=== PATIENT | male | born 1975 | race Caucasian/White ===

== ENCOUNTER 2017-01-29 08:42 | Inpatient (IN) | payer OTHER ==
[~2017-01-29] VITALS: Ht 185.4 cm; Wt 71.0 kg
[~2017-01-29 08:42] MED LIST: ALBU0.08 NEB; AZIT500T2 PO; IPRA0.02 NEB; NEBULIZER/ADULT1 KIT; NICO21DI2 T-DERMAL; PRED20 PO
[2017-01-29 08:45] VITALS: BP 140/80; PULSE 89; RESP 20; TEMP 97.8; O2SAT 92
[2017-01-29] MEDS ORDERED: SODIUM CHLORIDE 0.9% FLUSH 10 ML FLUSH IVF PRN (09:45)
[2017-01-29] MEDS ORDERED: methylPREDNISolone SOD SUCC 125 MG/2 ML VIAL IVP ONE (09:45)
--- NOTE | 2017-01-29 09:46 | PD ---
HPI Chief Complaint: Respiratory Symptoms Time Seen by Provider: 09:37 Travel History International Travel<30 days: No Contact w/Intl Traveler<30days: No Traveled to known affect area: No History of Present Illness HPI The patient is a 41-year-old male who presents emergency department for shortness of breath. The patient states he has a history of COPD, recently diagnosed, with shortness of breath since last Sunday. The patient states he has had increasing shortness of breath since Sunday with mild chest tightness, mostly dry nonproductive cough, however, occasionally produces green sputum. The patient has been using duo nebs at home 3 times a day without any alleviation of his symptoms. Patient states he is unable to lie supine or sleep secondary to the shortness of breath. Patient states he recently quit smoking, 3 weeks ago. The patient denies any history of CAD, CHF, or PE. The patient denies any company fever, chills, or sweats. The patient's primary physician is Dr. Arango. [facility] Past Medical History ADHD: Yes Blood Disorders: No Anxiety: Yes Cancer: No Cardiovascular Problems: No Congestive Heart Failure: No COPD: Yes Coronary Artery Disease: No Diabetes: No Diminished Hearing: No Endocrine: No Genitourinary: Yes (uti in past) Immune Disorder: No Musculoskeletal: No Neurologic: No Psychiatric: Yes Reproductive: No Respiratory: Yes (COPD) Integumentary: Yes (HX OF MRSA) Past Surgical History Appendectomy: Yes Social History Alcohol Use: Yes (OCCASIONAL BEER) Tobacco Use: Yes (1/2 PPD) Substance Use: No Allergies-Medications (Allergen,Severity, Reaction): Coded Allergies: No Known Allergies (Verified , 01/29/17) Reported Meds & Prescriptions Reported Meds & Active Scripts Active Nicotine Patch (Nicotine) 21 Mg/24 Hr Patch 21 Mg T-DERMAL DAILY Azithromycin 500 Mg Tab 500 Mg PO DAILY Prednisone 20 Mg Tab 20 Mg PO DIRECTED 40 MG twice a day x 3 days, then 20 MG daily x 3 days, then 10 MG daily x 3 days Ipratropium Neb (Ipratropium [place]) 0.5 Mg/2.5 Ml Amp 0.5 Mg NEB Q4HR NEB Mix with albuterol nebulizer. Use every 4 hours while awake for the next 3 days. Then use as needed Albuterol Neb (Albuterol Sulfate) 2.5 Mg/3 Ml Neb 2.5 Mg NEB Q4HR NEB Every 4 hours while awake for the next 3 days. Then use Every 4 hours as needed for shortness of breath or wheezing. Nebulizer/Adult Mask (N/A) 1 Kit Kit 1 Kit .ROUTE DIRECTED Review of Systems Except as stated in HPI: all other systems reviewed are Neg General / Constitutional: No: Fever HENT: Positive: Congestion Cardiovascular: Positive: Chest Pain or Discomfort Respiratory: Positive: Cough, Shortness of Breath, Wheezing Gastrointestinal: No: Nausea, Vomiting, Abdominal Pain Musculoskeletal: No: Weakness, Edema Neurologic: No: Dizziness Physical Exam Narrative GENERAL: Awake, alert, 41-year-old male who appears his stated age and is in mild respiratory distress. SKIN: Focused skin assessment warm/dry. HEAD: Atraumatic. Normocephalic. EYES: Pupils equal and round. No scleral icterus. No injection or drainage. ENT: No nasal bleeding or discharge. Mucous membranes pink and moist. NECK: Trachea midline. No JVD. CARDIOVASCULAR: Regular rate and rhythm. No murmur appreciated. Heart rate in the 90s. RESPIRATORY: Supraclavicular retractions. Diminished breath sounds throughout, tight lung frero with late expiratory wheeze. GASTROINTESTINAL: Abdomen soft, non-tender, nondistended. No rebound tenderness. MUSCULOSKELETAL: No obvious deformities. No clubbing. No cyanosis. No edema. NEUROLOGICAL: Awake and alert. No obvious cranial nerve deficits. Motor grossly within normal limits. Normal speech. PSYCHIATRIC: Appropriate mood and affect; insight and judgment normal. Data Data Last Documented VS Vital Signs Date Time Temp Pulse Resp B/P Pulse Ox O2 Delivery O2 Flow Rate FiO2 01/29/17 10:21 96 21 01/29/17 09:44 Nasal Cannula 2 01/29/17 09:44 01/29/17 08:45 97.8 89 20 Orders Complete Blood Count With Diff (01/29/17 09:42) Comprehensive Metabolic Panel (01/29/17 09:42) B-Type Natriuretic Peptide (01/29/17 09:42) Magnesium (Mg) (01/29/17 09:42) Ckmb (Isoenzyme) Profile (01/29/17 09:42) Troponin I (01/29/17 09:42) Iv Access Insert/Monitor (01/29/17 09:42) Electrocardiogram (01/29/17 09:42) Ecg Monitoring (01/29/17 09:42) Oximetry (01/29/17 09:42) Oxygen Administration (01/29/17 09:42) Chest, Single Ap (01/29/17 09:42) Sodium Chloride 0.9% Flush (Ns Flush) (01/29/17 09:45) Methylprednisolone So Succ Inj (Solumedr (01/29/17 09:45) Albuterol-Ipratropium Neb (Duoneb Neb) (01/29/17 09:45) Admit To Inpatient (01/29/17 ) Code Status (01/29/17 11:03) Vital Signs (Adult) Q4H (01/29/17 11:03) Activity Oob With Assistance (01/29/17 11:03) Diet Regular Basic (01/29/17 Lunch) Sodium Chloride 0.9% Flush (Ns Flush) (01/29/17 11:15) Sodium Chloride 0.9% Flush (Ns Flush) (01/29/17 21:00) Acetaminophen (Tylenol) (01/29/17 11:15) Ondansetron Inj (Zofran Inj) (01/29/17 11:15) Magnesium Hydroxide Liq (Milk Of Magnesi (01/29/17 11:15) Temazepam (Restoril) (01/29/17 11:15) Basic Metabolic Panel (Bmp) (01/30/17 06:00) Comprehensive Metabolic Panel (01/30/17 06:00) Chest, Pa & Lat (01/30/17 08:00) Resp Oxygen Kailash C Titrat 1-4 L (01/29/17 ) Pt Request For Service (01/29/17 11:03) Scd Bilateral/Knee High MARGA.BID (01/29/17 11:03) Naloxone Inj (Narcan Inj) (01/29/17 11:15) Inpatient Certification (01/29/17 ) Methylprednisolone So Succ Inj (Solumedr (01/29/17 16:00) Albuterol-Ipratropium Neb (Duoneb Neb) (01/29/17 14:00) Albuterol-Ipratropium Neb (Duoneb Neb) (01/29/17 11:15) 1/2 Ns + Kcl 20 Meq Inj (1/2 Ns + Kcl 20 (01/29/17 12:00) Nicotine 21 Mg Patch.24 Hr (Habitrol 21 (01/29/17 11:30) Remove Old Patch (01/29/17 11:30) Admit Order (Ed Use Only) (01/29/17 11:13) Labs Laboratory Tests Test 01/29/17 09:45 White Blood Count 7.1 TH/MM3 Red Blood Count 5.71 MIL/MM3 Hemoglobin 18.2 GM/DL Hematocrit 54.3 % Mean Corpuscular Volume 95.0 FL Mean Corpuscular Hemoglobin 31.8 PG Mean Corpuscular Hemoglobin 33.5 % Concent Red Cell Distribution Width 13.1 % Platelet Count 235 TH/MM3 Mean Platelet Volume 7.8 FL Neutrophils (%) (Auto) 73.4 % Lymphocytes (%) (Auto) 15.6 % Monocytes (%) (Auto) 9.0 % Eosinophils (%) (Auto) 1.2 % Basophils (%) (Auto) 0.8 % Neutrophils # (Auto) 5.2 TH/MM3 Lymphocytes # (Auto) 1.1 TH/MM3 Monocytes # (Auto) 0.6 TH/MM3 Eosinophils # (Auto) 0.1 TH/MM3 Basophils # (Auto) 0.1 TH/MM3 CBC Comment DIFF FINAL Differential Comment Sodium Level 136 MEQ/L Potassium Level 4.0 MEQ/L Chloride Level 100 MEQ/L Carbon Dioxide Level 27.5 MEQ/L Anion Gap 9 MEQ/L Blood Urea Nitrogen 7 MG/DL Creatinine 0.84 MG/DL Estimat Glomerular Filtration 100 ML/MIN Rate Random Glucose 92 MG/DL Calcium Level 9.4 MG/DL Magnesium Level 2.3 MG/DL Total Bilirubin 0.5 MG/DL Aspartate Amino Transf 23 U/L (AST/SGOT) Alanine Aminotransferase 31 U/L (ALT/SGPT) Alkaline Phosphatase 105 U/L Total Creatine Kinase 73 U/L Troponin I LESS THAN 0.02 NG/ML B-Type Natriuretic Peptide 14 PG/ML Total Protein 7.6 GM/DL Albumin 3.6 GM/DL MDM Medical Decision Making Medical Screen Exam Complete: Yes Emergency Medical Condition: Yes Medical Record Reviewed: Yes Interpretation(s) Laboratory Tests Test 01/29/17 09:45 White Blood Count 7.1 TH/MM3 Red Blood Count 5.71 MIL/MM3 Hemoglobin 18.2 GM/DL Hematocrit 54.3 % Mean Corpuscular Volume 95.0 FL Mean Corpuscular Hemoglobin 31.8 PG Mean Corpuscular Hemoglobin 33.5 % Concent Red Cell Distribution Width 13.1 % Platelet Count 235 TH/MM3 Mean Platelet Volume 7.8 FL Neutrophils (%) (Auto) 73.4 % Lymphocytes (%) (Auto) 15.6 % Monocytes (%) (Auto) 9.0 % Eosinophils (%) (Auto) 1.2 % Basophils (%) (Auto) 0.8 % Neutrophils # (Auto) 5.2 TH/MM3 Lymphocytes # (Auto) 1.1 TH/MM3 Monocytes # (Auto) 0.6 TH/MM3 Eosinophils # (Auto) 0.1 TH/MM3 Basophils # (Auto) 0.1 TH/MM3 CBC Comment DIFF FINAL Differential Comment Sodium Level 136 MEQ/L Potassium Level 4.0 MEQ/L Chloride Level 100 MEQ/L Carbon Dioxide Level 27.5 MEQ/L Anion Gap 9 MEQ/L Blood Urea Nitrogen 7 MG/DL Creatinine 0.84 MG/DL Estimat Glomerular Filtration 100 ML/MIN Rate Random Glucose 92 MG/DL Calcium Level 9.4 MG/DL Magnesium Level 2.3 MG/DL Total Bilirubin 0.5 MG/DL Aspartate Amino Transf 23 U/L (AST/SGOT) Alanine Aminotransferase 31 U/L (ALT/SGPT) Alkaline Phosphatase 105 U/L Total Creatine Kinase 73 U/L Troponin I LESS THAN 0.02 NG/ML B-Type Natriuretic Peptide 14 PG/ML Total Protein 7.6 GM/DL Albumin 3.6 GM/DL Last Impressions Chest X-Ray 01/29/17 0942 Signed Impressions: Service Date/Time: Sunday, January 29, 2017 10:00 - CONCLUSION: No acute disease. Adolph Benítez MD Differential Diagnosis Differential diagnosis includes COPD exacerbation, bronchitis, pneumonia, congestive heart failure, pleural effusion, pulmonary embolism, ACS. Narrative Course IV was established, labs are drawn and sent, and the patient was placed on cardiac telemetry monitoring and continuous pulse oximetry monitoring. EKG was ordered and interpreted. Chest x-ray was obtained. The patient was administered Solu-Medrol 125 mg intravenously and duo nebs 3. Chest x-rays unremarkable. Laboratory evaluation is unremarkable. The patient was reevaluated at 11 AM, he still has some supraclavicular retractions, mild improvement and bilateral breath sounds, but still tight with late expiratory wheeze. The patient was still symptomatic with visible supraclavicular retractions. He has been using DuoNeb's outpatient without any alleviation of his symptoms. Therefore, patient will be admitted for COPD exacerbation and failure of outpatient treatment. I discussed the patient with the on-call [facility] physician, Dr. Sanchez, who agrees with admission. Physician Communication Physician Communication I discussed the patient Dr. Sanchez who agrees with admission. Diagnosis Primary Impression: COPD with acute exacerbation Admitting Information Admitting Physician Requests: Admit Condition: Stable Moy Brizuela MD Jan 29, 2017 09:46 Moy Brizuela MD Jan 29, 2017 09:46
[2017-01-29 10:11] LABS: AUTOMATED NEUTROPHIL # 5.2 TH/MM3 (1.8-7.7); BASOPHIL # 0.1 TH/MM3 (0-0.2); BASOPHIL % 0.8 % (0.0-2.0); EOSINOPHIL # 0.1 TH/MM3 (0-0.4); EOSINOPHIL % 1.2 % (0.0-4.0); HEMATOCRIT 54.3 % (39.0-51.0); HEMO FLAGS DIFF FINAL; LYMPH % 15.6 % (9.0-44.0); LYMPHOCYTE # 1.1 TH/MM3 (1.0-4.8); MEAN CORPUSCULAR HEMOGLOBIN 31.8 PG (27.0-34.0); MEAN CORPUSCULAR HGB CONC 33.5 % (32.0-36.0); NEUT % 73.4 % (16.0-70.0); PLATELET COUNT 235 TH/MM3 (150-450); RED BLOOD COUNT 5.71 MIL/MM3 (4.50-5.90); RED CELL DISTRIBUTION WIDTH 13.1 % (11.6-17.2); WHITE BLOOD COUNT 7.1 TH/MM3 (4.0-11.0)
[2017-01-29] MEDS: RESP: ALBUTEROL 2.5 MG/IPRATROPIUM 0.5 MG NEB (SCH) INH (10:19)
[2017-01-29 10:21] VITALS: O2SAT 96
[2017-01-29 10:30] LABS: ALT (GPT) 31 U/L (12-78); ANION GAP 9 MEQ/L (5-15); AST (GOT) 23 U/L (15-37); BICARBONATE 27.5 MEQ/L (21.0-32.0); BLOOD UREA NITROGEN 7 MG/DL (7-18); CHLORIDE 100 MEQ/L (98-107); GLOMERULAR FILTRATION RATE 100 ML/MIN (>89); MAGNESIUM 2.3 MG/DL (1.5-2.5); SODIUM (NA) 136 MEQ/L (136-145)
[2017-01-29 10:33] LABS: ALKALINE PHOSPHATASE 105 U/L (45-117); TOTAL BILIRUBIN ADULT 0.5 MG/DL (0.2-1.0)
[2017-01-29 10:35] LABS: CREATINE KINASE 73 U/L (39-308)
--- NOTE | 2017-01-29 10:35 | RADRPT ---
EXAM DATE/TIME: 01/29/2017 10:00 [facility] COMPARISON: CHEST SINGLE AP, September 24, 2016, 20:28. INDICATIONS : Short of breath, chest pain MEDICAL HISTORY : Chronic obstructive pulmonary disease. SURGICAL HISTORY : None. ENCOUNTER: Initial ACUITY: 3 days PAIN SCORE: 4/10 LOCATION: Bilateral chest FINDINGS: A single view of the chest demonstrates the lungs to be symmetrically aerated without evidence of mas s, infiltrate or effusion. The cardiomediastinal contours are unremarkable. Osseous structures are intact. CONCLUSION: No acute disease. Adolph Benítez MD on January 29, 2017 at 10:33 Board Certified Radiologist. This report was verified electronically.
[2017-01-29] MEDS ORDERED: ACETAMINOPHEN 325 MG TAB PO PRN (11:15)
[2017-01-29] MEDS ORDERED: ONDANSETRON HCL 4 MG/2 ML VIAL IVP PRN (11:15)
[2017-01-29] MEDS ORDERED: MAGNESIUM HYDROXIDE SUSP 30 ML CUP PO PRN (11:15)
[2017-01-29] MEDS ORDERED: TEMAZEPAM 15 MG CAP PO PRN (11:15)
[2017-01-29] MEDS ORDERED: NALOXONE HCL 0.4 MG/ML AMP IV PRN (11:15)
[2017-01-29] MEDS ORDERED: SODIUM CHLORIDE 0.9% FLUSH 10 ML FLUSH IV FLUSH PRN (11:15)
[2017-01-29] MEDS ORDERED: RESP: ALBUTEROL 2.5 MG/IPRATROPIUM 0.5 MG NEB (PRN) NEB (11:15)
[2017-01-29] MEDS: RESP: ALBUTEROL 2.5 MG/IPRATROPIUM 0.5 MG NEB (SCH) NEB ×3 (11:28→20:25)
[2017-01-29 11:29] VITALS: O2SAT 87
[2017-01-29] MEDS ORDERED: REMOVE OLD NICOTINE PATCH T-DERMAL SCH (11:30)
[2017-01-29] MEDS: NICOTINE 21 MG/24 HR PATCH T-DERMAL SCH (11:30)
[2017-01-29] MEDS ORDERED: NON-FORMULARY DRUG (Umeclidinium Bromide Inh (Incruse Ellipta Inh) 62.5 MCG) INH SCH (15:00)
[2017-01-29] MEDS ORDERED: VENTAER INH (15:01)
[2017-01-29] MEDS ORDERED: UMEC1INH INH (15:01)
--- NOTE | 2017-01-29 15:09 | HHI.HP ---
HPI Service [facility] Hospitalists Primary Care Physician Michael Arango MD Admission Diagnosis COPD exacerbation, dyspnea, failed outpatient therapy Chief Complaint: SOB Travel History International Travel<30 Days: No Contact w/Intl Traveler <30 Da: No Traveled to Known Affected Are: No History of Present Illness Mr. Watson is a pleasant 41 y/o WM with severe COPD, hx of tobacco abuse and GERD who presented to the ED at [facility] on 01/29/17 with complaints of shortness of breath. The patient feels that he has had some worsening shortness of breath since last Sunday with some associated mild chest tightness. He has had a mostly nonproductive cough, however, occasionally produces green sputum. The patient has been using Duonebs at home 3 times a day without any improvement in his symptoms. Patient states he is unable to lie supine or sleep secondary to the shortness of breath. Patient states he recently quit smoking, 3 weeks ago. The patient denies any history of CAD, CHF, or PE. The patient denies any fever, chills, or sweats. In the ED the pt was given Solu-Medrol and several Duoneb treatments with some improvement in his symptoms. Review of Systems Constitutional: DENIES: Fever, Chills Respiratory: COMPLAINS OF: Cough, Sputum production, Shortness of breath Cardiovascular: DENIES: Chest pain, Palpitations, Lower Extremity Edema Gastrointestinal: DENIES: Abdominal pain, Nausea, Vomiting Genitourinary: DENIES: Dysuria Musculoskeletal: DENIES: Back pain, Neck pain Integumentary: DENIES: Rash Neurologic: DENIES: Headache Psychiatric: DENIES: Confusion Past Family Social History Past Medical History COPD, PFTs from 11/2016 noted FEV1 34% predicted Tobacco abuse GERD Past Surgical History Appendectomy Reported Medications Incruse Ellipta 62.5mcg one inhalation per day Duonebs Q4H PRN Ventolin HFA 108mcg, 2 puffs Q4-6H PRN Allergies: Coded Allergies: No Known Allergies (Verified , 01/29/17) Family History Noncontributory Social History (+)Tobacco use, 1-1.5 ppd x 27 years, quit about 3 weeks ago (+)Occasional alcohol use Denies any illicit drug use Physical Exam Vital Signs Vital Signs Date Time Temp Pulse Resp B/P Pulse Ox O2 Delivery O2 Flow Rate FiO2 01/29/17 11:29 87 21 4/24/17 10:21 96 21 01/29/17 09:44 93 Nasal Cannula 2 01/29/17 09:44 Nasal Cannula 2 01/29/17 09:41 93 01/29/17 08:45 97.8 89 20 140/80 92 Physical Exam GENERAL: This is a well-nourished, well-developed patient, in no apparent distress. HEENT: Atraumatic. Normocephalic. No temporal or scalp tenderness. No scleral icterus. Airway patent. NECK: Trachea midline, supple, nontender. CARDIO: Regular. RESP: Coarse breath sounds bilaterally. ABD: +BS, soft, non-tender, nondistended. EXT: Extremities without clubbing, cyanosis, or edema. NEURO: Awake and alert. Motor and sensory grossly within normal limits. Normal speech. Laboratory Laboratory Tests Test 01/29/17 09:45 White Blood Count 7.1 Red Blood Count 5.71 Hemoglobin 18.2 Hematocrit 54.3 Mean Corpuscular Volume 95.0 Mean Corpuscular Hemoglobin 31.8 Mean Corpuscular Hemoglobin 33.5 Concent Red Cell Distribution Width 13.1 Platelet Count 235 Mean Platelet Volume 7.8 Neutrophils (%) (Auto) 73.4 Lymphocytes (%) (Auto) 15.6 Monocytes (%) (Auto) 9.0 Eosinophils (%) (Auto) 1.2 Basophils (%) (Auto) 0.8 Neutrophils # (Auto) 5.2 Lymphocytes # (Auto) 1.1 Monocytes # (Auto) 0.6 Eosinophils # (Auto) 0.1 Basophils # (Auto) 0.1 CBC Comment DIFF FINAL Differential Comment Sodium Level 136 Potassium Level 4.0 Chloride Level 100 Carbon Dioxide Level 27.5 Anion Gap 9 Blood Urea Nitrogen 7 Creatinine 0.84 Estimat Glomerular Filtration 100 Rate Random Glucose 92 Calcium Level 9.4 Magnesium Level 2.3 Total Bilirubin 0.5 Aspartate Amino Transf 23 (AST/SGOT) Alanine Aminotransferase 31 (ALT/SGPT) Alkaline Phosphatase 105 Total Creatine Kinase 73 Troponin I LESS THAN 0.02 B-Type Natriuretic Peptide 14 Total Protein 7.6 Albumin 3.6 Result Diagram: 01/29/1745 01/29/17944 Imaging Last Impressions Chest X-Ray 01/29/17941 Signed Impressions: Service Date/Time: Sunday, January 29, 2017 10:00 - CONCLUSION: No acute disease. Adolph Benítez MD Septic Shock Reassessment Heart: Regular rate and rhythm Lungs: Course Skin: Warm Peripheral Pulses: Bounding Right Radial Bounding Left Radial Bounding Right Popliteal Bounding Left Popliteal Bounding Right Dorsalis Pedis Bounding Left Dorsalis Pedis Bounding Right Posterior Tibial Bounding Left Posterior Tibial Assessment and Plan Problem List: (1) COPD with acute exacerbation Status: Acute Plan: - Pt admitted with a 4 days of worsening SOB and cough, occasionally productive of green sputum. - He received Solu-Medrol 125 mg intravenously and duo nebs 3 in the ED - Pt had been using Duonebs TID as an outpt but this was not helping. - PFTs in 11/2016 with FEV1 34% of predicted. - Pt is on Incruse Ellipta once daily at home. - Pt will be continued on Solu-Medrol 60mg Q6H - Cont. Duonebs Q4H - Nicotine patch - Mucinex BID - Monitor labs - DVT prophylaxis (2) Tobacco abuse Status: Chronic Plan: - Tobacco cessation, pt reports that he quit 3 weeks ago - Nicotine patch Assessment and Plan Patient examined. Assessment and plan formulated with Rachel Lara PA-C. I agree with the above. Physician Certification 2 Midnight Certification Type: Admission for Inpatient Services Order for Inpatient Services The services are ordered in accordance with Medicare regulations or non- Medicare payer requirements, as applicable. In the case of services not specified as inpatient-only, they are appropriately provided as inpatient services in accordance with the 2-midnight benchmark. Estimated LOS (days): 2 2 days is the estimated time the patient will need to remain in the hospital, assuming treatment plan goals are met and no additional complications. Post-Hospital Plan: Home Rachel Lara Jan 29, 2017 15:09 Jermaine Sanchez DO February 10, 2017 10:25
[2017-01-29] MEDS: methylPREDNISolone SOD SUCC 125 MG/2 ML VIAL IV PUSH SCH ×2 (15:16→20:08)
[2017-01-29 16:00] VITALS: BP 129/73; PULSE 92; RESP 18; TEMP 97.4; O2SAT 92
[2017-01-29] MEDS: 1/2 NS + KCL 20 MEQ INJ 1,000 ML IV SCH ×2 (16:00→23:55)
[2017-01-29] MEDS: guaiFENesin E.R. 600 MG TAB PO SCH ×2 (16:32→20:08)
[2017-01-29] MEDS: LEVOFLOXACIN 500 MG TAB PO SCH (18:02)
[2017-01-29 20:00] VITALS: BP 144/75; PULSE 92; RESP 20; TEMP 97.9; O2SAT 93
[2017-01-29] MEDS: SODIUM CHLORIDE 0.9% FLUSH 10 ML FLUSH IV FLUSH SCH (20:09)
[2017-01-29 20:26] VITALS: O2SAT 94
[2017-01-30] VITALS: BP 138/84; PULSE 99; RESP 20; TEMP 97.7; O2SAT 90
[2017-01-30] MEDS: RESP: ALBUTEROL 2.5 MG/IPRATROPIUM 0.5 MG NEB (SCH) NEB ×4 (00:34→12:22)
[2017-01-30 04:00] VITALS: BP 126/60; PULSE 65; RESP 16; TEMP 97.3; O2SAT 95
[2017-01-30] MEDS: methylPREDNISolone SOD SUCC 125 MG/2 ML VIAL IV PUSH SCH ×2 (04:34→10:24)
[2017-01-30] MEDS: guaiFENesin E.R. 600 MG TAB PO SCH (07:38)
[2017-01-30] MEDS: NICOTINE 21 MG/24 HR PATCH T-DERMAL SCH (07:40)
[2017-01-30 07:50] LABS: ANION GAP 10 MEQ/L (5-15); AST (GOT) 14 U/L (15-37); BICARBONATE 23.3 MEQ/L (21.0-32.0); BLOOD UREA NITROGEN 16 MG/DL (7-18); CHLORIDE 102 MEQ/L (98-107); GLOMERULAR FILTRATION RATE 96 ML/MIN (>89); POTASSIUM 4.4 MEQ/L (3.5-5.1); SODIUM (NA) 135 MEQ/L (136-145)
[2017-01-30 07:53] LABS: ALKALINE PHOSPHATASE 93 U/L (45-117); ALT (GPT) 24 U/L (12-78); TOTAL BILIRUBIN ADULT 0.3 MG/DL (0.2-1.0)
[2017-01-30 08:00] VITALS: BP 145/73; PULSE 87; RESP 20; TEMP 97.4; O2SAT 92
[2017-01-30 08:24] VITALS: O2SAT 92
[2017-01-30] MEDS: SODIUM CHLORIDE 0.9% FLUSH 10 ML FLUSH IV FLUSH SCH (09:00)
--- NOTE | 2017-01-30 09:22 | RADRPT ---
EXAM DATE/TIME: 01/30/2017 08:54 [facility] COMPARISON: CHEST SINGLE AP, January 29, 2017, 10:00. INDICATIONS : Short of breath. MEDICAL HISTORY : Chronic obstructive pulmonary disease. SURGICAL HISTORY : None. ENCOUNTER: Subsequent ACUITY: 2 days PAIN SCORE: 0/10 LOCATION: Bilateral chest FINDINGS: PA and lateral views of the chest demonstrate a normal-sized cardiac silhouette. There is no effusion , consolidation, or pneumothorax. The bones and soft tissues demonstrate no acute abnormality. CONCLUSION: No acute cardiopulmonary abnormality is identified. Franco Kumar MD on January 30, 2017 at 9:19 Board Certified Radiologist. This report was verified electronically.
[2017-01-30] MEDS ORDERED: IPRA0.02 NEB (10:22)
[2017-01-30] MEDS ORDERED: ALBU0.08 NEB (10:22)
[2017-01-30] MEDS ORDERED: PRED10 PO (10:22)
--- NOTE | 2017-01-30 10:23 | HHI.DCPOC ---
Discharge Care Plan Diagnosis: (1) COPD with acute exacerbation (2) Tobacco abuse (3) Cough productive of purulent sputum Goals to Promote Your Health - He is to continue Albuterol/Ipratropium nebulizer treatments 3-4 times per day for the next 5 days. - Pt will be prescribed a Prednisone taper 20mg twice daily x 4 days --> 10mg twice daily x 3 days -->10mg once daily x 3 days, then stop - He will continue his home meds including Incruse Ellipta and Mucinex BID. The Incruse ellipta was recently prescribed and he had not started taking this at home yet but is going to pick it up when he picks up the other prescriptions. - Pt will be prescribed Levaquin 500mg once daily x 5 days. - He is to followup with his PCP, Dr. Arango, in 1 week for re-evaluation. Call for an appt. Directions to Meet Your Goals Take your medications as prescribed Follow your dietary instruction Follow activity as directed Keep your appointments as scheduled Take your immunizations and boosters as scheduled If your symptoms worsen call your PCP, if no PCP go to Urgent Care Center or Emergency Room Smoking is Dangerous to Your Health. Avoid second hand smoke Call the 24-hour hour crisis hotline for domestic abuse at Rachel Lara Jan 30, 2017 10:23 Jermaine Sanchez DO February 10, 2017 10:25
[2017-01-30] MEDS: LEVOFLOXACIN 500 MG TAB PO SCH (10:24)
--- NOTE | 2017-01-30 11:51 | HHI.PR ---
Subjective Remarks Pt reports that overall her is feeling better His cough is improving. Objective Vitals Vital Signs Date Time Temp Pulse Resp B/P Pulse Ox O2 Delivery O2 Flow Rate FiO2 01/30/17 08:24 92 21 01/30/17 08:00 97.4 87 20 145/73 92 01/30/17 04:00 97.3 65 16 126/60 95 01/30/17 00:00 97.7 99 20 138/84 90 01/29/17 20:26 94 21 01/29/17 20:00 97.9 92 20 144/75 93 01/29/17 16:00 97.4 92 18 129/73 92 01/29/17 01/29/17 01/30/17 15:00 23:00 07:00 Intake Total 240 ml 0 ml Output Total 400 ml Balance 240 ml -400 ml Intake Oral 240 ml 0 ml Output Urine Total 400 ml # Voids 1 # Bowel Movements 0 0 Result Diagram: 01/29/17 0945 01/30/17 0602 Other Results Laboratory Tests Test 01/29/17 01/30/17 09:45 06:02 White Blood Count 7.1 TH/MM3 Red Blood Count 5.71 MIL/MM3 Hemoglobin 18.2 GM/DL Hematocrit 54.3 % Mean Corpuscular Volume 95.0 FL Mean Corpuscular Hemoglobin 31.8 PG Mean Corpuscular Hemoglobin 33.5 % Concent Red Cell Distribution Width 13.1 % Platelet Count 235 TH/MM3 Mean Platelet Volume 7.8 FL Neutrophils (%) (Auto) 73.4 % Lymphocytes (%) (Auto) 15.6 % Monocytes (%) (Auto) 9.0 % Eosinophils (%) (Auto) 1.2 % Basophils (%) (Auto) 0.8 % Neutrophils # (Auto) 5.2 TH/MM3 Lymphocytes # (Auto) 1.1 TH/MM3 Monocytes # (Auto) 0.6 TH/MM3 Eosinophils # (Auto) 0.1 TH/MM3 Basophils # (Auto) 0.1 TH/MM3 CBC Comment DIFF FINAL Differential Comment Sodium Level 136 MEQ/L 135 MEQ/L Potassium Level 4.0 MEQ/L 4.4 MEQ/L Chloride Level 100 MEQ/L 102 MEQ/L Carbon Dioxide Level 27.5 MEQ/L 23.3 MEQ/L Anion Gap 9 MEQ/L 10 MEQ/L Blood Urea Nitrogen 7 MG/DL 16 MG/DL Creatinine 0.84 MG/DL 0.87 MG/DL Estimat Glomerular Filtration 100 ML/MIN 96 ML/MIN Rate Random Glucose 92 MG/DL 155 MG/DL Calcium Level 9.4 MG/DL 9.5 MG/DL Magnesium Level 2.3 MG/DL Total Bilirubin 0.5 MG/DL 0.3 MG/DL Aspartate Amino Transf 23 U/L 14 U/L (AST/SGOT) Alanine Aminotransferase 31 U/L 24 U/L (ALT/SGPT) Alkaline Phosphatase 105 U/L 93 U/L Total Creatine Kinase 73 U/L Troponin I LESS THAN 0.02 NG/ML B-Type Natriuretic Peptide 14 PG/ML Total Protein 7.6 GM/DL 6.9 GM/DL Albumin 3.6 GM/DL 3.1 GM/DL Imaging Last Impressions Chest X-Ray 01/30/17 0800 Signed Impressions: Service Date/Time: Monday, January 30, 2017 08:54 - CONCLUSION: No acute cardiopulmonary abnormality is identified. Franco Kumar MD Last Impressions Chest X-Ray 01/29/17 0942 Signed Impressions: Service Date/Time: Sunday, January 29, 2017 10:00 - CONCLUSION: No acute disease. Adolph Benítez MD Objective Remarks General: NAD< AAOx3 Chest: Improved aeration bilaterally Cardiac: Regular Abd:+BS, soft ND/NT Ext: No edema A/P Problem List: (1) COPD with acute exacerbation Status: Acute Plan: - Pt admitted with a 4 days of worsening SOB and cough, occasionally productive of green sputum. - He received Solu-Medrol 125 mg intravenously and duo nebs 3 in the ED - Pt had been using Duonebs TID as an outpt but this was not helping. - PFTs in 11/2016 with FEV1 34% of predicted. - Pt is on Incruse Ellipta once daily at home. - Pt was continued on Solu-Medrol 60mg Q6H - Cont. Duonebs Q4H - Mucinex BID - Pt is anxious for discharge to home today - He is to continue Duonebs Q4H for the next 5 days. He states that he will have to borrow the money for these medications as he does not get pain until Sunday. - Pt will be prescribed a Prednisone taper 20mg po BID x 4 days --> 10mg po BID x 3 days -->10mg once daily x 3 days, then stop - He will continue his home meds including Incruse Ellipta and Mucinex BID. The Incruse ellipta was recently prescribed and he had not started taking this at home yet but is going to pick it up when he picks up the other prescriptions. - Pt will be prescribed Levaquin 500mg po daily x 5 days. - He is to followup with his PCP, Dr. Arango, in 1 week for re-evaluation. (2) Tobacco abuse Status: Chronic Plan: - Tobacco cessation, pt reports that he quit 3 weeks ago - Nicotine patch Assessment and Plan Patient examined. Assessment and plan formulated with Rachel Lara PA-C. I agree with the above. Rachel Lara Jan 30, 2017 11:51 Jermaine Sanchez DO February 10, 2017 10:24
[2017-01-30 12:00] VITALS: BP 129/64; PULSE 92; RESP 20; TEMP 97.3; O2SAT 96
--- NOTE | 2017-01-30 13:09 | EKG ---
Date Performed: 01/29/2017 Time Performed: 09:52:00 PTAGE: 41 years EKG: Sinus rhythm POSSIBLE RIGHT VENTRICULAR CONDUCTION DELAY BORDERLINE ECG PREVIOUS TRACING : 09/24/2016 20.22 No significant change from previous tracing noted. DOCTOR: Angus Cooper Interpretating Date/Time 01/30/2017 13:06:40
[2017-01-30] MEDS ORDERED: LEVA500T PO (13:23)
== END 2017-01-30 14:45 | disposition home or self-care (01) | DRG 192 ==
LOC: NEPC 08:42 → NEDA 11:15 → N04B 14:58
PROVIDERS: ADMIT Hospitalist; ATTEND Hospitalist
DX: J44.1 Chronic obstructive pulmonary disease with (acute) exacerbation (principal); K21.9 Gastro-esophageal reflux disease without esophagitis; Z87.891 Personal history of nicotine dependence; Z79.52 Long term (current) use of systemic steroids; Z86.14 Personal history of Methicillin resistant Staphylococcus aureus infection
CPT/HCPCS: 71010; 71020; 80053; 82550; 83735; 83880; 84484; 85025; 93005; 94640; 94664; 96374; J2930